=== PATIENT | male | born 1960 | race Caucasian/White ===

== ENCOUNTER 2020-02-28 19:37 | Emergency (ER) | payer OTHER ==
[~2020-02-28] VITALS: Ht 182.9 cm; Wt 80.7 kg
[~2020-02-28 19:37] MED LIST: ASPI-1093 PO; CLOP75TA PO; HUM SUBQ; HYDR-5191 PO; LANTUS SUBQ; LISI-420 PO; METO25TA PO; SIMV40TA1 PO
[2020-02-28 21:00] VITALS: BP 127/76
--- NOTE | 2020-02-28 21:03 | NUR ---
TO LOBBY A/W BED AMBULATORY
--- NOTE | 2020-02-28 22:00 | NUR ---
SEEN AND EXAMINED BY NATANAEL WITH ORDERS AND CARRIED OUT.
--- NOTE | 2020-02-28 23:30 | NUR ---
RESULT BACK AND NOTED BY ERMD AND FOR D/C
[2020-02-28 23:50] VITALS: BP 127/76
== END 2020-02-28 23:50 | disposition home or self-care (01) ==
LOC: MED 19:37
DX: M25.561 Pain in right knee (principal); E11.9 Type 2 diabetes mellitus without complications; I10 Essential (primary) hypertension; Z88.8 Allergy status to other drugs, medicaments and biological substances; Z79.4 Long term (current) use of insulin; Z79.899 Other long term (current) drug therapy; Z86.73 Personal history of transient ischemic attack (TIA), and cerebral infarction without residual deficits; Z98.890 Other specified postprocedural states
CPT/HCPCS: 73562; 99283

== ENCOUNTER 2020-10-12 02:25 | Emergency (ER) | payer OTHER ==
[~2020-10-12] VITALS: Ht 182.9 cm; Wt 83.0 kg
[~2020-10-12 02:25] MED LIST changes: -LISI-420 PO; +LISI-487 PO
[2020-10-12 02:30] VITALS: BP 150/71
[2020-10-12] MEDS ORDERED: ONDANSETRON 4 MG/2 ML VIAL IVP ONE (02:40)
[2020-10-12] MEDS ORDERED: NACL 0.9% 1,000 ML IV ONE (02:40)
[2020-10-12] MEDS ORDERED: MORPHINE SULFATE 4 MG/ML SYR IVP ONE (02:40)
--- NOTE | 2020-10-12 02:45 | NUR ---
SEE COMPLETE ASSESSMENT.
--- NOTE | 2020-10-12 02:56 | NUR ---
BIB WHEELCHAIR FROM ER LOBBY TO ER BED 13
[2020-10-12 03:01] LABS: BASOPHILS % (AUTO) 0.6 % (0.0-2.0); EOSINOPHILS # (AUTO) 0.3 K/uL (0-0.4); EOSINOPHILS % (AUTO) 3.6 % (0.0-4.0); HEMATOCRIT 39.2 % (36-52); HEMOGLOBIN 13.4 g/dL (12.0-18.0); LYMPHOCYTES # (AUTO) 1.9 K/uL (2.0-11.5); LYMPHOCYTES % (AUTO) 22.5 % (20.5-51.1); MEAN CORPUSCULAR HEMOGLOBIN 32 pg (27-31); MEAN CORPUSCULAR HGB CONC 34 g/dL (33-37); MEAN CORPUSCULAR VOLUME 92.4 fL (80-94); MONOCYTES # (AUTO) 0.6 K/uL (0.8-1.0); MONOCYTES % (AUTO) 6.6 % (1.7-9.3); NEUTROPHILS # (AUTO) 5.6 K/uL (1.8-7.7); NEUTROPHILS % (AUTO) 66.7 % (42.2-75.2); PLATELET COUNT (AUTO) 272 K/uL (140-450); RED BLOOD CELL COUNT(AUTO) 4.24 MIL/uL (4.20-6.10); RED CELL DISTRIBUTION WIDTH 13.4 % (11.6-13.7); WHITE BLOOD COUNT (AUTO) 8.4 K/uL (4.8-10.8)
[2020-10-12 03:15] LABS: ANION GAP 11.2 (8-16); CARBON DIOXIDE 28.8 mmol/L (21-32); TOTAL BILIRUBIN 0.2 mg/dL (0.0-1.0)
--- NOTE | 2020-10-12 03:39 | NUR ---
PT TAKEN TO CT VIA RTE[facility].
--- NOTE | 2020-10-12 05:45 | NUR ---
DELAY IN URINE COLLECTION, PT. STATES "I CAN'T GO RIGHT NOW."
--- NOTE | 2020-10-12 05:50 | NUR ---
PT. SITTING UPRIGHT RESTING WITH EYES CLOSED, VOICES NO COMPLAINTS AT THIS TIME
--- NOTE | 2020-10-12 06:10 | NUR ---
PER ERMD OK TO DISCHARGE PT. WITHOUT URINE COLLECTION.
[2020-10-12 06:15] VITALS: BP 150/71
--- NOTE | 2020-10-12 06:15 | NUR ---
Patient discharged with v/s stable. Written and verbal after care instructions given and explained. Patient verbalized understanding. Ambulatory with steady gait using cane. All questions addressed prior to discharge. Advised to follow up with PMD.
--- NOTE | 2020-10-13 19:22 | NUR ---
LATE ENTRY- 0.9% NS IVF DISCONTINUED AT 0412
== END 2020-10-12 06:15 | disposition home or self-care (01) ==
LOC: MED 02:25
DX: K59.00 Constipation, unspecified (principal); E11.9 Type 2 diabetes mellitus without complications; I10 Essential (primary) hypertension; Z79.4 Long term (current) use of insulin; Z79.899 Other long term (current) drug therapy; Z86.73 Personal history of transient ischemic attack (TIA), and cerebral infarction without residual deficits
CPT/HCPCS: 36415; 74177; 80053; 82150; 83690; 85025; 96361; 96374; 96375; 99285; J2270; J2405; J7030; Q9967

== ENCOUNTER 2020-11-04 17:37 | Emergency (ER) | payer OTHER, SELFPAY ==
[~2020-11-04] VITALS: Ht 177.8 cm; Wt 83.0 kg
[~2020-11-04 17:37] MED LIST changes: +ASPI-1822 PO; +ATRN INH; +BISA-218 RC; +CARV6.25 PO; +DOCU250S72 PO; +FAMO-90 PO; +FLEPED RC; +GABA300C PO; +HYDR2TAB6 PO; +LACT-103 PO; +LISI10TA30 PO; +LORA-476 PO; +MAGN400S60 PO; +MIRABULK PO; +MIRT15OD PO; +NITR0.3T SL; +OMEP20EC11 PO; +ONDA4TAB PO; +ROB PO; +SENN-73 PO; +TICA90TA PO
[2020-11-04 17:40] VITALS: BP 169/100
[2020-11-04] MEDS ORDERED: NACL 0.9% 2,000 ML IV ONE (18:50)
[2020-11-04] MEDS ORDERED: ONDANSETRON 4 MG/2 ML VIAL IVP ONE (18:50)
[2020-11-04 18:57] LABS: BASOPHILS % (AUTO) 0.4 % (0.0-2.0); EOSINOPHILS # (AUTO) 0.2 K/uL (0-0.4); EOSINOPHILS % (AUTO) 2.9 % (0.0-4.0); HEMATOCRIT 42.2 % (36-52); HEMOGLOBIN 14.3 g/dL (12.0-18.0); LYMPHOCYTES # (AUTO) 1.1 K/uL (2.0-11.5); LYMPHOCYTES % (AUTO) 14.5 % (20.5-51.1); MEAN CORPUSCULAR HEMOGLOBIN 32 pg (27-31); MEAN CORPUSCULAR HGB CONC 34 g/dL (33-37); MEAN CORPUSCULAR VOLUME 93.6 fL (80-94); MONOCYTES # (AUTO) 0.5 K/uL (0.8-1.0); NEUTROPHILS # (AUTO) 5.9 K/uL (1.8-7.7); NEUTROPHILS % (AUTO) 76.2 % (42.2-75.2); PLATELET COUNT (AUTO) 262 K/uL (140-450); RED CELL DISTRIBUTION WIDTH 13.8 % (11.6-13.7); WHITE BLOOD COUNT (AUTO) 7.8 K/uL (4.8-10.8)
--- NOTE | 2020-11-04 18:59 | NUR ---
XRAY BEDSIDE WITH PT
--- NOTE | 2020-11-04 19:00 | NUR ---
59 y/o M RYAN from home with c/c nausea, vomiting, abdominal pain x 2 days. Per EMS, patient has history of GI issues and has had intestinal procedure completed. Patient A&Ox2 name/place, GCS 14. Patient seen and discharged here 2 days ago and states symptoms worsened. Patient reports low abd pain 9/10, sharp/intermittent, radiating to left and right lower quadrants. Patient denies fever, chills, SOB, chest pain, cold-like symptoms; denies trauma/injury and medications prior to arrival. VSS; respirations even/unlabored. Bed locked in lowest position, side rails x 2, call light in reach. AccuChek 423. PMH: HTN, DM, 5 previous MIs, 2 stents, 2 CVAs A: Furosemide, iodine Meds: Lantus, humalog, ASA 81, Lisinopril, metoprolol, simvastatin, plavix, [place] Sx: Bowel obstruction sx Addendum: 11/04/20 at 1909 by [facility] Pt reports "25+ episodes" of vomiting today.
--- NOTE | 2020-11-04 19:06 | NUR ---
Blood sample and UA collected, walked to lab and handed to CPT. Sary
[2020-11-04 19:11] LABS: ALBUMIN 4.3 g/dL (3.4-5.0); ANION GAP 9.8 (8-16); ASPARTATE AMINOTRANSFERASE 16 U/L (15-37); CARBON DIOXIDE 30.5 mmol/L (21-32); CHLORIDE 101 mmol/L (98-107); GFR ARICAN-AMERICAN 99 mL/min (>90); GLUCOSE 389 mg/dL (74-106); POTASSIUM 4.3 mmol/L (3.5-5.1); SODIUM SERUM 137 mmol/L (136-145); TOTAL BILIRUBIN 0.2 mg/dL (0.0-1.0); UREA NITROGEN, BLOOD 11 mg/dL (7-18)
--- NOTE | 2020-11-04 19:17 | NUR ---
Patient to CT by perla.
--- NOTE | 2020-11-04 19:25 | NUR ---
Report and transfer of care endorsed to MAX Roy.
[2020-11-04] MEDS ORDERED: HALOPERIDOL IM 5 MG/ML VIAL IVP ONE (19:35)
--- NOTE | 2020-11-04 20:18 | NUR ---
PT. ON RIGHT SIDE LAYING COMFORTABLY, VOICES NO COMPLAINTS AT THIS TIME. BREATHIG UNLABORED, HR EVEN AND REGULAR.
[2020-11-04 20:25] LABS: APPEARANCE,URINE CLEAR (CLEAR); BILIRUBIN,URINE NEGATIVE (NEGATIVE); BLOOD, URINE NEGATIVE (NEGATIVE); COLOR,URINE YELLOW (YELLOW); LEUKOCYTE ESTERASE ,URINE NEGATIVE (NEGATIVE); NITRITE, URINE NEGATIVE (NEGATIVE); PH,URINE 7.5 (5.0-9.0); UGLUCOSE 3+ (NEGATIVE)
[2020-11-04] MEDS ORDERED: ONDA-24 PO (20:37)
[2020-11-04 20:41] LABS: BARBITURATE, URINE NEGATIVE ng/ml (NEG <=200); BENZODIAZEPINE, URINE POSITIVE ng/mL (NEG <=200); CANNABINOID, URINE POSITIVE ng/mL (NEG <=50); COCAINE, URINE NEGATIVE ng/mL (NEG <=300); OPIATE, URINE POSITIVE ng/mL (NEG <=2000); PHENCYCLIDINE SCREEN,URINE NEGATIVE ng/mL (NEG <=25)
[2020-11-04 20:48] VITALS: BP 169/100
--- NOTE | 2020-11-04 20:48 | NUR ---
Patient discharged with v/s stable. Written and verbal after care instructions given and explained. Patient alert, oriented and verbalized understanding of instructions. Ambulatory with steady gait. All questions addressed prior to discharge. ID band removed. Patient advised to follow up with PMD. Rx of ZOFRAN ODT given. Patient educated on indication of medication including possible reaction and side effects. Opportunity to ask questions provided and answered.
--- NOTE | 2020-11-05 23:16 | NUR ---
LATE ENTRY- 0.9% NS IVF DISCONTINUED AT 2047
== END 2020-11-04 20:48 | disposition home or self-care (01) ==
LOC: MED 17:37
DX: R10.9 Unspecified abdominal pain (principal); R11.2 Nausea with vomiting, unspecified; E86.0 Dehydration; E11.9 Type 2 diabetes mellitus without complications; I10 Essential (primary) hypertension; Z95.5 Presence of coronary angioplasty implant and graft; Z98.890 Other specified postprocedural states; Z86.73 Personal history of transient ischemic attack (TIA), and cerebral infarction without residual deficits; Z79.899 Other long term (current) drug therapy; Z79.82 Long term (current) use of aspirin; Z79.4 Long term (current) use of insulin; Z79.01 Long term (current) use of anticoagulants; Z88.8 Allergy status to other drugs, medicaments and biological substances
CPT/HCPCS: 36415; 71045; 74176; 80053; 80305; 81003; 82140; 85025; 96361; 96374; 96375; 99285; G0482; J1630; J2405; J7030

== ENCOUNTER 2020-11-05 10:18 | Emergency (ER) | payer OTHER ==
[~2020-11-05] VITALS: Ht 182.9 cm; Wt 81.6 kg
[~2020-11-05 10:18] MED LIST changes: +ONDA-24 PO
[2020-11-05 10:25] VITALS: BP 141/67
--- NOTE | 2020-11-05 11:55 | NUR ---
11:55-PATIENT LEFT WITHOUT BEING SEEN BY DR. WOMACK. NO FURTHER CARE PROVIDED FOR PATIENT.
== END 2020-11-05 11:55 | disposition left against medical advice (07) ==
LOC: MED 10:18
DX: R11.2 Nausea with vomiting, unspecified (principal); Z53.21 Procedure and treatment not carried out due to patient leaving prior to being seen by health care provider

== ENCOUNTER 2020-12-06 19:32 | Emergency (ER) | payer OTHER ==
[~2020-12-06] VITALS: Ht 182.9 cm; Wt 102.1 kg
[2020-12-06 19:39] VITALS: BP 122/79
--- NOTE | 2020-12-06 19:39 | NUR ---
to bed ambulatory
--- NOTE | 2020-12-06 19:40 | NUR ---
PT. IS A 59 Y/O MALE THAT CAME TO ED WITH C/O OF ABDOMINAL DISTENTION. PT. STATES THAT HE HAS NOT HAD A BOWEL MOVEMENT SINCE LAST WEDNESDAY. HE ALSO STATES "HE FEELS HE HAS ABDOMINAL DISTENTION AND ABOMINAL PAIN." PT. RATES PAIN 9/10 ON THE PAIN SCALE AT THIS TIME. WHEN ASKED TO DESCRIBE PAIN, PT. STATES "IT IS MOSTLY ON MY LEFT SIDE." ADMITS TO N/V BUT DENIES DIARRHEA; SKIN IS PINK/WARM/DRY; AAOX4 WITH EVEN AND STEADY GAIT; HR EVEN AND REGULAR; PT DENIES ANY FEVER, CP, SOB, OR COUGH AT THIS TIME; VSS; PATIENT POSITIONED FOR COMFORT; HOB ELEVATED; BEDRAILS UP X2; BED DOWN. ER MD MADE AWARE OF PT STATUS. PMH: SEE COMPLETE ASSESSMENT ALLERGIES: FUROSEMIDE AND IODINE
[2020-12-06] MEDS ORDERED: diphenhydrAMINE 50 MG/ML VIAL IVP ONE (20:15)
[2020-12-06] MEDS ORDERED: KETOROLAC 30 MG/ML VIAL IVP ONE (20:15)
[2020-12-06] MEDS ORDERED: NACL 0.9% 1,000 ML IV SCH (20:15)
[2020-12-06] MEDS ORDERED: PROCHLORPERAZINE 10 MG/2 ML VIAL IVP ONE (20:15)
--- NOTE | 2020-12-06 20:38 | NUR ---
PT. TAKEN TO CT. VIA W/C
--- NOTE | 2020-12-06 20:45 | NUR ---
PT. BACK FROM CT.
--- NOTE | 2020-12-06 20:50 | NUR ---
LABS DRAWN AND HANDED TO SARINA FROM LAB
[2020-12-06 21:05] LABS: BASOPHILS # (AUTO) 0.1 K/uL (0.00-0.22); EOSINOPHILS # (AUTO) 0.4 K/uL (0-0.4); EOSINOPHILS % (AUTO) 6.3 % (0.0-4.0); HEMATOCRIT 40.7 % (36-52); HEMOGLOBIN 13.8 g/dL (12.0-18.0); LYMPHOCYTES % (AUTO) 31.8 % (20.5-51.1); MEAN CORPUSCULAR HEMOGLOBIN 32 pg (27-31); MEAN CORPUSCULAR HGB CONC 34 g/dL (33-37); MEAN CORPUSCULAR VOLUME 94.2 fL (80-94); MONOCYTES # (AUTO) 0.5 K/uL (0.8-1.0); MONOCYTES % (AUTO) 8.1 % (1.7-9.3); NEUTROPHILS # (AUTO) 3.3 K/uL (1.8-7.7); NEUTROPHILS % (AUTO) 52.8 % (42.2-75.2); PLATELET COUNT (AUTO) 199 K/uL (140-450); RED BLOOD CELL COUNT(AUTO) 4.32 MIL/uL (4.20-6.10); RED CELL DISTRIBUTION WIDTH 14.1 % (11.6-13.7); WHITE BLOOD COUNT (AUTO) 6.2 K/uL (4.8-10.8)
[2020-12-06 21:25] LABS: ALBUMIN 3.7 g/dL (3.4-5.0); ANION GAP 14.1 (8-16); CARBON DIOXIDE 27.1 mmol/L (21-32); CREATININE 1.1 mg/dL (0.6-1.3); POTASSIUM 4.2 mmol/L (3.5-5.1); TOTAL BILIRUBIN 0.3 mg/dL (0.0-1.0)
[2020-12-06 21:51] VITALS: BP 122/79
--- NOTE | 2020-12-06 21:51 | NUR ---
Patient does not wish to proceed with medical care recommended by DR. SINGH. Patient given information related to possible complications, up to and including , which could occur as a result of leaving hospital at this time. Patient verbalizes understanding of risks involved leaving against medical advice. Patient has signed AMA form.
--- NOTE | 2020-12-09 11:54 | NUR ---
LATE ENTRY--- IV NORMAL SALINE 0.9% FLUIDS DISCONTINUED AT 2151.
== END 2020-12-06 21:51 | disposition left against medical advice (07) ==
LOC: MED 19:32
DX: R10.9 Unspecified abdominal pain (principal); R14.0 Abdominal distension (gaseous); R11.0 Nausea; E11.9 Type 2 diabetes mellitus without complications; I10 Essential (primary) hypertension; Z86.73 Personal history of transient ischemic attack (TIA), and cerebral infarction without residual deficits; Z88.8 Allergy status to other drugs, medicaments and biological substances; Z79.899 Other long term (current) drug therapy; Z98.890 Other specified postprocedural states; Z79.4 Long term (current) use of insulin; Z79.82 Long term (current) use of aspirin
CPT/HCPCS: 36415; 74176; 80053; 82150; 83690; 85025; 96361; 96374; 96375; 99284; J0780; J1200; J7030; J1885

== ENCOUNTER 2021-09-27 17:10 | Emergency (ER) | payer OTHER ==
[~2021-09-27] VITALS: Ht 177.8 cm; Wt 79.4 kg
[~2021-09-27 17:10] MED LIST changes: +ONDA-188 PO; -ONDA-24 PO
[2021-09-27 17:55] VITALS: BP 112/73
[2021-09-27] MEDS ORDERED: KETOROLAC 30 MG/ML VIAL IVP ONE (18:45)
[2021-09-27] MEDS ORDERED: ACET-8386 PO (18:50)
[2021-09-27] MEDS ORDERED: IBUP-2213 PO (18:50)
--- NOTE | 2021-09-27 18:55 | NUR ---
ULNAR GUTTER SPLINT PLACED ON PT'S RIGHT HAND. CMS INTACT BEFORE AND AFTER PLACEMENT. CHANTELL BLACKBURN VERIFIED AND APPROVED OF SPLINT PLACEMENT.
[2021-09-27 19:07] VITALS: BP 118/80
--- NOTE | 2021-09-27 19:08 | NUR ---
Patient discharged with v/s stable. Written and verbal after care instructions given and explained. Patient alert, oriented and verbalized understanding of instructions. Ambulatory with steady gait. All questions addressed prior to discharge. ID band removed. Patient advised to follow up with PMD. Rx of NORCO, MOTRIN given. Patient educated on indication of medication including possible reaction and side effects. Opportunity to ask questions provided and answered.
== END 2021-09-27 19:08 | disposition home or self-care (01) ==
LOC: MED 17:10
DX: S62.336A Displaced fracture of neck of fifth metacarpal bone, right hand, initial encounter for closed fracture (principal); E11.9 Type 2 diabetes mellitus without complications; I10 Essential (primary) hypertension; Z86.73 Personal history of transient ischemic attack (TIA), and cerebral infarction without residual deficits; Z95.5 Presence of coronary angioplasty implant and graft; Z98.890 Other specified postprocedural states; Z79.891 Long term (current) use of opiate analgesic; Z79.899 Other long term (current) drug therapy; Z79.1 Long term (current) use of non-steroidal anti-inflammatories (NSAID); Z79.82 Long term (current) use of aspirin; Z79.01 Long term (current) use of anticoagulants; Z79.4 Long term (current) use of insulin; Z88.8 Allergy status to other drugs, medicaments and biological substances; W22.8XXA Striking against or struck by other objects, initial encounter; Y92.89 Other specified places as the place of occurrence of the external cause; Y93.89 Activity, other specified; Y99.8 Other external cause status
CPT/HCPCS: 29125; 73130; 96372; 99283; J1885

== ENCOUNTER 2021-09-29 13:58 | Emergency (ER) | payer OTHER ==
[~2021-09-29] VITALS: Ht 185.4 cm; Wt 87.1 kg
[~2021-09-29 13:58] MED LIST changes: +ACET-8386 PO; +IBUP-2213 PO
[2021-09-29 14:11] VITALS: BP 101/61
--- NOTE | 2021-09-29 15:33 | NUR ---
PATIENT LEFT WITHOUT BEING SEEN BY DR. FRANZ. NO FURTHER CARE PROVIDED FOR PATIENT.
== END 2021-09-29 15:33 | disposition left against medical advice (07) ==
LOC: MED 13:58
DX: M79.601 Pain in right arm (principal); Z53.21 Procedure and treatment not carried out due to patient leaving prior to being seen by health care provider

== ENCOUNTER 2021-11-05 20:04 | Emergency (ER) | payer OTHER ==
[~2021-11-05] VITALS: Ht 182.9 cm; Wt 83.0 kg
[2021-11-05 20:39] VITALS: BP 131/66
[2021-11-05] MEDS ORDERED: PRED20TA5 PO (22:44)
[2021-11-05] MEDS ORDERED: IBUP-2213 PO (22:44)
[2021-11-05 23:07] VITALS: BP 124/86
== END 2021-11-05 23:08 | disposition home or self-care (01) ==
LOC: MED 20:04
DX: R06.02 Shortness of breath (principal); R05.9 Cough, unspecified; M54.6 Pain in thoracic spine; E11.9 Type 2 diabetes mellitus without complications; I10 Essential (primary) hypertension; Z86.73 Personal history of transient ischemic attack (TIA), and cerebral infarction without residual deficits; Z95.5 Presence of coronary angioplasty implant and graft; Z98.890 Other specified postprocedural states; Z79.899 Other long term (current) drug therapy; Z79.1 Long term (current) use of non-steroidal anti-inflammatories (NSAID); Z79.891 Long term (current) use of opiate analgesic; Z79.82 Long term (current) use of aspirin; Z79.4 Long term (current) use of insulin; Z88.8 Allergy status to other drugs, medicaments and biological substances
CPT/HCPCS: 71045; 99283

== ENCOUNTER 2021-11-20 17:45 | Emergency (ER) | payer OTHER ==
[~2021-11-20] VITALS: Ht 182.9 cm; Wt 87.5 kg
[~2021-11-20 17:45] MED LIST changes: +PRED20TA5 PO
[2021-11-20 17:57] VITALS: BP 147/93
[2021-11-20 19:07] LABS: BASOPHILS % (AUTO) 0.3 % (0.0-2.0); EOSINOPHILS # (AUTO) 0.2 K/uL (0-0.4); EOSINOPHILS % (AUTO) 1.8 % (0.0-4.0); HEMATOCRIT 41.4 % (36-52); HEMOGLOBIN 14.1 g/dL (12.0-18.0); MEAN CORPUSCULAR HEMOGLOBIN 32 pg (27-31); MEAN CORPUSCULAR HGB CONC 34 g/dL (33-37); MEAN CORPUSCULAR VOLUME 92.6 fL (80-94); MONOCYTES # (AUTO) 0.7 K/uL (0.8-1.0); MONOCYTES % (AUTO) 7.8 % (1.7-9.3); NEUTROPHILS # (AUTO) 7.3 K/uL (1.8-7.7); NEUTROPHILS % (AUTO) 79.1 % (42.2-75.2); PLATELET COUNT (AUTO) 240 K/uL (140-450); RED BLOOD CELL COUNT(AUTO) 4.47 MIL/uL (4.20-6.10); RED CELL DISTRIBUTION WIDTH 13.5 % (11.6-13.7); WHITE BLOOD COUNT (AUTO) 9.2 K/uL (4.8-10.8)
[2021-11-20 19:32] LABS: ALBUMIN 3.6 g/dL (3.4-5.0); ANION GAP 13.6 (8-16); CARBON DIOXIDE 26.8 mmol/L (21-32); CREATININE 1.3 mg/dL (0.6-1.3); POTASSIUM 4.4 mmol/L (3.5-5.1); TOTAL BILIRUBIN 0.3 mg/dL (0.0-1.0)
--- NOTE | 2021-11-20 20:10 | NUR ---
PT TOLD ADMITTING HE IS LEAVING. LWBS
== END 2021-11-20 20:10 | disposition left against medical advice (07) ==
LOC: MED 17:45
DX: R10.9 Unspecified abdominal pain (principal); R14.0 Abdominal distension (gaseous); R11.2 Nausea with vomiting, unspecified; R19.7 Diarrhea, unspecified; Z53.21 Procedure and treatment not carried out due to patient leaving prior to being seen by health care provider
CPT/HCPCS: 36415; 73110; 80053; 83690; 85025; 99281

== ENCOUNTER 2021-11-23 10:33 | Emergency (ER) | payer OTHER ==
[~2021-11-23] VITALS: Ht 182.9 cm; Wt 87.5 kg
[2021-11-23 10:38] VITALS: BP 132/94
--- NOTE | 2021-11-23 10:41 | NUR ---
AMBULATED TO BED 1
--- NOTE | 2021-11-23 10:50 | NUR ---
60 Y/O MALE BIB SELF C/O ABDOMINAL PAIN, NAUSEA AND VOMITING X1 WEEK. STATES GI DOCTOR ADVISED HIM TO COME TO ED FOR CT SCAN. DENIES ANY BLOOD IN STOOL OR VOMITUS. PATIENT HERE ON 11/20 FOR SAME SYMPTOMS BUT STATED HE LWBS. STATED THAT HE TOOK ZOFRAN 4MG FOR NAUSEA WITH MODERATE EFFECT. 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
[2021-11-23] MEDS ORDERED: ONDANSETRON 4 MG/2 ML VIAL IVP ONE (11:20)
[2021-11-23] MEDS ORDERED: MORPHINE SULFATE 4 MG/ML SYR IVP ONE (11:20)
[2021-11-23] MEDS ORDERED: NACL 0.9% 1,000 ML IV ONE (11:20)
--- NOTE | 2021-11-23 11:45 | NUR ---
PT TAKEN TO CT VIA SIGRID
[2021-11-23 12:01] LABS: BASOPHILS % (AUTO) 0.5 % (0.0-2.0); EOSINOPHILS # (AUTO) 0.2 K/uL (0-0.4); HEMATOCRIT 39.3 % (36-52); HEMOGLOBIN 13.5 g/dL (12.0-18.0); LYMPHOCYTES # (AUTO) 1.2 K/uL (2.0-11.5); LYMPHOCYTES % (AUTO) 22.3 % (20.5-51.1); MEAN CORPUSCULAR HEMOGLOBIN 32 pg (27-31); MEAN CORPUSCULAR HGB CONC 34 g/dL (33-37); MEAN CORPUSCULAR VOLUME 92.6 fL (80-94); MONOCYTES # (AUTO) 0.6 K/uL (0.8-1.0); MONOCYTES % (AUTO) 11.7 % (1.7-9.3); NEUTROPHILS # (AUTO) 3.3 K/uL (1.8-7.7); NEUTROPHILS % (AUTO) 62.5 % (42.2-75.2); PLATELET COUNT (AUTO) 213 K/uL (140-450); RED BLOOD CELL COUNT(AUTO) 4.25 MIL/uL (4.20-6.10); RED CELL DISTRIBUTION WIDTH 13.5 % (11.6-13.7); WHITE BLOOD COUNT (AUTO) 5.3 K/uL (4.8-10.8)
[2021-11-23] MEDS ORDERED: BEN10 PO (12:19)
[2021-11-23] MEDS ORDERED: MAGN400S60 PO (12:19)
[2021-11-23] MEDS ORDERED: ACET-10509 PO (12:19)
[2021-11-23] MEDS ORDERED: SIME125T38 PO (12:19)
[2021-11-23 12:30] LABS: ALBUMIN 3.3 g/dL (3.4-5.0); ANION GAP 14.7 (8-16); CARBON DIOXIDE 22.6 mmol/L (21-32); CREATININE 1.3 mg/dL (0.6-1.3); POTASSIUM 4.3 mmol/L (3.5-5.1); TOTAL BILIRUBIN 0.3 mg/dL (0.0-1.0)
[2021-11-23 13:05] VITALS: BP 119/88
--- NOTE | 2021-11-23 13:05 | NUR ---
Patient discharged with v/s stable. Written and verbal after care instructions given and explained. Patient alert, oriented and verbalized understanding of instructions. Ambulatory with steady gait. All questions addressed prior to discharge. ID band removed. Patient advised to follow up with PMD. Rx of TYLENOL EXTRA STRENGTH, BENTYL, MILK OF MAGNESIA, [place] given. Patient educated on indication of medication including possible reaction and side effects. Opportunity to ask questions provided and answered.
== END 2021-11-23 13:05 | disposition home or self-care (01) ==
LOC: MED 10:33
DX: R10.84 Generalized abdominal pain (principal); I10 Essential (primary) hypertension; I25.10 Atherosclerotic heart disease of native coronary artery without angina pectoris; E11.9 Type 2 diabetes mellitus without complications; Z91.040 Latex allergy status; Z88.8 Allergy status to other drugs, medicaments and biological substances; Z86.73 Personal history of transient ischemic attack (TIA), and cerebral infarction without residual deficits; Z98.890 Other specified postprocedural states
CPT/HCPCS: 36415; 74176; 80053; 85025; 96361; 96374; 96375; 99284; J2270; J2405; J7030

== ENCOUNTER 2022-02-11 12:06 | Emergency (ER) | payer OTHER ==
[~2022-02-11] VITALS: Ht 182.9 cm; Wt 88.0 kg
[~2022-02-11 12:06] MED LIST changes: +ACET-10509 PO; +BEN10 PO; +SIME125T38 PO
[2022-02-11 12:12] VITALS: BP 129/88
--- NOTE | 2022-02-11 12:20 | NUR ---
PT W/C ASSISTED TO BED 3.
[2022-02-11 13:40] LABS: BASOPHILS % (AUTO) 0.7 % (0.0-2.0); EOSINOPHILS # (AUTO) 0.3 K/uL (0-0.4); EOSINOPHILS % (AUTO) 4.7 % (0.0-4.0); HEMATOCRIT 40.4 % (36-52); HEMOGLOBIN 13.8 g/dL (12.0-18.0); LYMPHOCYTES % (AUTO) 14.8 % (20.5-51.1); MEAN CORPUSCULAR HEMOGLOBIN 31 pg (27-31); MEAN CORPUSCULAR HGB CONC 34 g/dL (33-37); MEAN CORPUSCULAR VOLUME 92.1 fL (80-94); MONOCYTES # (AUTO) 0.6 K/uL (0.8-1.0); MONOCYTES % (AUTO) 8.8 % (1.7-9.3); NEUTROPHILS # (AUTO) 4.9 K/uL (1.8-7.7); PLATELET COUNT (AUTO) 243 K/uL (140-450); RED BLOOD CELL COUNT(AUTO) 4.38 MIL/uL (4.20-6.10); RED CELL DISTRIBUTION WIDTH 13.5 % (11.6-13.7); WHITE BLOOD COUNT (AUTO) 6.9 K/uL (4.8-10.8)
[2022-02-11 14:04] LABS: ANION GAP 9.6 (8-16); CARBON DIOXIDE 31.7 mmol/L (21-32); CREATININE 1.2 mg/dL (0.6-1.3); POTASSIUM 4.3 mmol/L (3.5-5.1)
[2022-02-11 14:05] LABS: ALBUMIN 3.6 g/dL (3.4-5.0); TOTAL BILIRUBIN 0.6 mg/dL (0.0-1.0)
[2022-02-11] MEDS: ASPIRIN 325 MG TAB PO ONE (14:17)
--- NOTE | 2022-02-11 14:20 | NUR ---
61M presents to ED with c/o chest pain and SOB x8 days. Pt reports a constant, pressure like, 4/10 chest pain that worsened today. Pt denies taking meds, states he ran out of nitroglycerin. Pt denies fevers, chills, N/V/D, headaches, or dizziness. Upon assessment, pt's O2 98% on RA. Pt changed into gown and placed on bedside monitor.
[2022-02-11 14:23] LABS: PROTHROMBIN TIME 10.6 secs (10.8-13.4)
--- NOTE | 2022-02-11 15:46 | NUR ---
Swab collected and walked to lab.
[2022-02-11 16:35] VITALS: BP 100/60
--- NOTE | 2022-02-11 17:36 | NUR ---
Patient does not wish to proceed with medical care recommended by Dr. Falcon. Patient given information related to possible complications, up to and including , which could occur as a result of leaving hospital at this time. Patient verbalizes understanding of risks involved leaving against medical advice. Patient has signed AMA form.
== END 2022-02-11 17:36 | disposition left against medical advice (07) ==
LOC: MED 12:06
DX: R07.89 Other chest pain (principal); Z20.822 Contact with and (suspected) exposure to COVID-19
CPT/HCPCS: 36415; 71045; 80053; 83880; 84484; 85025; 85610; 85730; 87426; 93005; 99285; Q0092

== ENCOUNTER 2022-04-02 13:36 | Emergency (ER) | payer OTHER ==
[~2022-04-02 13:36] MED LIST changes: -ACET-8386 PO; +ACET-8905 PO
--- NOTE | 2022-04-02 14:04 | NUR ---
PATIENT LEFT WITHOUT BEING SEEN BY DR. marroquin. NO FURTHER CARE PROVIDED FOR PATIENT.
== END 2022-04-02 14:04 | disposition left against medical advice (07) ==
LOC: MED 13:36
DX: J00 Acute nasopharyngitis [common cold] (principal); Z53.21 Procedure and treatment not carried out due to patient leaving prior to being seen by health care provider

== ENCOUNTER 2022-04-23 10:45 | Emergency (ER) | payer OTHER ==
[~2022-04-23] VITALS: Ht 182.9 cm; Wt 89.1 kg
[2022-04-23 10:47] VITALS: BP 129/88
--- NOTE | 2022-04-23 10:55 | NUR ---
61/M WALKED IN C/O MIDSTERNAL CP ONSET 2 DAYS ACCOMPANIED BY HEADACHE. DENIES RADIATION. DENIES NVD, DENIES DIZZINESS. REPORTS HX STROKE AND TX, 11X STENTS. ON GOWN, ON GIZZARD PULLER. AAO4, AMBULATORY, NO ACUTE DISTRESS NOTED. PMH: STROKE, 6 HEART ATTACKS, 11 STENTS
--- NOTE | 2022-04-23 11:12 | NUR ---
IV ESTABLISHED TO RIGHT AC WITH 20G. BLOOD DRAWN.URINE COLLECTED. EKG DONE
[2022-04-23] MEDS ORDERED: PROCHLORPERAZINE 10 MG/2 ML VIAL IM ONE (11:45)
[2022-04-23] MEDS ORDERED: MORPHINE SULFATE 2 MG/ML SYR IM ONE (11:45)
[2022-04-23 11:53] LABS: BASOPHILS % (AUTO) 0.6 % (0.0-2.0); EOSINOPHILS # (AUTO) 0.4 K/uL (0-0.4); EOSINOPHILS % (AUTO) 5.2 % (0.0-4.0); HEMATOCRIT 41.7 % (36-52); HEMOGLOBIN 14.3 g/dL (12.0-18.0); LYMPHOCYTES # (AUTO) 1.7 K/uL (2.0-11.5); LYMPHOCYTES % (AUTO) 24.2 % (20.5-51.1); MEAN CORPUSCULAR HEMOGLOBIN 31 pg (27-31); MEAN CORPUSCULAR HGB CONC 34 g/dL (33-37); MEAN CORPUSCULAR VOLUME 89.7 fL (80-94); MONOCYTES # (AUTO) 0.5 K/uL (0.8-1.0); NEUTROPHILS # (AUTO) 4.3 K/uL (1.8-7.7); PLATELET COUNT (AUTO) 273 K/uL (140-450); RED BLOOD CELL COUNT(AUTO) 4.65 MIL/uL (4.20-6.10); RED CELL DISTRIBUTION WIDTH 13.8 % (11.6-13.7); WHITE BLOOD COUNT (AUTO) 6.9 K/uL (4.8-10.8)
[2022-04-23 12:15] LABS: ALBUMIN 4.4 g/dL (3.4-5.0); ANION GAP 13.3 (8-16); CARBON DIOXIDE 29.9 mmol/L (21-32); CREATININE 1.1 mg/dL (0.6-1.3); POTASSIUM 4.2 mmol/L (3.5-5.1); TOTAL BILIRUBIN 0.5 mg/dL (0.0-1.0)
[2022-04-23] MEDS ORDERED: TRAM-748 PO (13:16)
[2022-04-23 13:20] VITALS: BP 135/74
== END 2022-04-23 13:20 | disposition home or self-care (01) ==
LOC: MED 10:45
DX: G43.909 Migraine, unspecified, not intractable, without status migrainosus (principal); R07.9 Chest pain, unspecified; I25.2 Old myocardial infarction; E11.9 Type 2 diabetes mellitus without complications; I10 Essential (primary) hypertension; Z86.73 Personal history of transient ischemic attack (TIA), and cerebral infarction without residual deficits; Z98.890 Other specified postprocedural states; Z79.899 Other long term (current) drug therapy; Z79.1 Long term (current) use of non-steroidal anti-inflammatories (NSAID); Z79.891 Long term (current) use of opiate analgesic; Z79.82 Long term (current) use of aspirin; Z79.01 Long term (current) use of anticoagulants; Z79.4 Long term (current) use of insulin; Z88.8 Allergy status to other drugs, medicaments and biological substances
CPT/HCPCS: 36415; 71045; 80053; 83880; 84484; 85025; 93005; 96372; 99285; J0780; J2270

== ENCOUNTER 2022-05-13 00:22 | Emergency (ER) | payer OTHER ==
[~2022-05-13] VITALS: Ht 182.9 cm; Wt 87.1 kg
[~2022-05-13 00:22] MED LIST changes: +TRAM-748 PO
[2022-05-13 00:31] VITALS: BP 132/86
[2022-05-13] MEDS ORDERED: MECLIZINE 25 MG TAB PO ONE (01:20)
[2022-05-13] MEDS ORDERED: ONDANSETRON 4 MG ODT PO ONE (01:20)
[2022-05-13] MEDS ORDERED: ONDANSETRON 4 MG ODT ONE (01:22)
[2022-05-13] MEDS ORDERED: MECLIZINE 25 MG TAB ONE (01:22)
[2022-05-13 01:35] LABS: BASOPHILS % (AUTO) 0.6 % (0.0-2.0); EOSINOPHILS # (AUTO) 0.3 K/uL (0-0.4); EOSINOPHILS % (AUTO) 3.7 % (0.0-4.0); HEMATOCRIT 36.9 % (36-52); HEMOGLOBIN 12.5 g/dL (12.0-18.0); LYMPHOCYTES # (AUTO) 1.4 K/uL (2.0-11.5); LYMPHOCYTES % (AUTO) 19.1 % (20.5-51.1); MEAN CORPUSCULAR HEMOGLOBIN 31 pg (27-31); MEAN CORPUSCULAR HGB CONC 34 g/dL (33-37); MEAN CORPUSCULAR VOLUME 89.7 fL (80-94); MONOCYTES # (AUTO) 0.5 K/uL (0.8-1.0); MONOCYTES % (AUTO) 7.3 % (1.7-9.3); NEUTROPHILS # (AUTO) 4.9 K/uL (1.8-7.7); NEUTROPHILS % (AUTO) 69.3 % (42.2-75.2); PLATELET COUNT (AUTO) 241 K/uL (140-450); RED BLOOD CELL COUNT(AUTO) 4.11 MIL/uL (4.20-6.10); RED CELL DISTRIBUTION WIDTH 13.8 % (11.6-13.7); WHITE BLOOD COUNT (AUTO) 7.1 K/uL (4.8-10.8)
[2022-05-13 01:45] LABS: ALBUMIN 3.9 g/dL (3.4-5.0); ANION GAP 8.7 (8-16); CARBON DIOXIDE 32.2 mmol/L (21-32); CREATININE 1.2 mg/dL (0.6-1.3); POTASSIUM 3.9 mmol/L (3.5-5.1); TOTAL BILIRUBIN 0.2 mg/dL (0.0-1.0)
[2022-05-13 02:09] LABS: BARBITURATE, URINE NEGATIVE ng/ml (NEG <=200); BENZODIAZEPINE, URINE NEGATIVE ng/mL (NEG <=200); CANNABINOID, URINE POSITIVE ng/mL (NEG <=50); COCAINE, URINE NEGATIVE ng/mL (NEG <=300); OPIATE, URINE NEGATIVE ng/mL (NEG <=2000); PHENCYCLIDINE SCREEN,URINE NEGATIVE ng/mL (NEG <=25)
[2022-05-13] MEDS ORDERED: ONDA-188 SL (03:04)
[2022-05-13] MEDS ORDERED: MECL-303 PO (03:04)
[2022-05-13 03:10] VITALS: BP 119/74
== END 2022-05-13 03:10 | disposition home or self-care (01) ==
LOC: MED 00:22
DX: F12.229 Cannabis dependence with intoxication, unspecified (principal); E11.65 Type 2 diabetes mellitus with hyperglycemia; I10 Essential (primary) hypertension; F15.90 Other stimulant use, unspecified, uncomplicated; I25.2 Old myocardial infarction; Z86.73 Personal history of transient ischemic attack (TIA), and cerebral infarction without residual deficits; Z98.890 Other specified postprocedural states; Z79.899 Other long term (current) drug therapy; Z79.82 Long term (current) use of aspirin; Z79.891 Long term (current) use of opiate analgesic; Z79.4 Long term (current) use of insulin; Z79.1 Long term (current) use of non-steroidal anti-inflammatories (NSAID); Z88.8 Allergy status to other drugs, medicaments and biological substances; Z95.5 Presence of coronary angioplasty implant and graft
CPT/HCPCS: 36415; 71045; 80053; 80305; 85025; 93005; 99285; J8597; Q0092; Q0162

== ENCOUNTER 2022-06-03 19:36 | Emergency (ER) | payer OTHER ==
[~2022-06-03 19:36] MED LIST changes: +MECL-303 PO; +ONDA-188 SL; +SIMV-373 PO; -SIMV40TA1 PO
--- NOTE | 2022-06-03 22:00 | NUR ---
PATIENT LEFT WITHOUT BEING SEEN BY DR. ZAVALA. NO FURTHER CARE PROVIDED FOR PATIENT.
--- NOTE | 2022-06-03 22:00 | NUR ---
made call out into lobby no answer x1
--- NOTE | 2022-06-03 22:35 | NUR ---
made call out to lobby no answer, second attempt
--- NOTE | 2022-06-03 23:59 | NUR ---
made call to lobby and ER and outside, no answer LWBS by physician
== END 2022-06-03 22:00 | disposition left against medical advice (07) ==
LOC: MED 19:36
DX: R10.9 Unspecified abdominal pain (principal); Z53.21 Procedure and treatment not carried out due to patient leaving prior to being seen by health care provider

== ENCOUNTER 2022-11-27 22:18 | Emergency (ER) | payer OTHER | END 2022-11-27 23:30 | disposition left against medical advice (07) | LOC: MED 22:18 | DX: Z53.21 Procedure and treatment not carried out due to patient leaving prior to being seen by health care provider (principal) ==

== ENCOUNTER 2023-10-03 15:27 | Emergency (ER) | payer OTHER ==
[~2023-10-03] VITALS: Ht 180.3 cm; Wt 83.9 kg
[~2023-10-03 15:27] MED LIST changes: -BISA-218 RC; +BISA-279 RC; +HYDR-5071 PO; -HYDR-5191 PO; -LACT-103 PO; +LACT-191 PO; -LISI-487 PO; +LISI-953 PO
[2023-10-03 15:48] VITALS: BP 89/64; PULSE 120; RESP 18; TEMP 98.1; O2SAT 97
[2023-10-03] MEDS: ACETAMINOPHEN EXTRA STRENGTH 500 MG TAB PO ONE (16:19)
[2023-10-03] MEDS ORDERED: ACET-10509 PO (16:57)
== END 2023-10-03 17:46 | disposition home or self-care (01) ==
LOC: MED 15:27
DX: S93.402A Sprain of unspecified ligament of left ankle, initial encounter (principal); I25.2 Old myocardial infarction; E11.9 Type 2 diabetes mellitus without complications; I10 Essential (primary) hypertension; Z79.899 Other long term (current) drug therapy; Z79.4 Long term (current) use of insulin; Z79.01 Long term (current) use of anticoagulants; Z88.8 Allergy status to other drugs, medicaments and biological substances; Z79.82 Long term (current) use of aspirin; X50.1XXA Overexertion from prolonged static or awkward postures, initial encounter; Y93.89 Activity, other specified; Y92.89 Other specified places as the place of occurrence of the external cause; Y99.8 Other external cause status
CPT/HCPCS: 73610; 93005; 99283

== ENCOUNTER 2023-10-15 01:40 | Emergency (ER) | payer OTHER ==
[~2023-10-15] VITALS: Ht 175.3 cm; Wt 83.9 kg
[2023-10-15 01:46] VITALS: BP 168/106; PULSE 94; RESP 20; TEMP 98.2; O2SAT 98
[2023-10-15 01:53] VITALS: O2SAT 98
[2023-10-15 03:03] LABS: BASOPHILS # (AUTO) 0.1 K/uL (0.00-0.22); BASOPHILS % (AUTO) 0.5 % (0.0-2.0); EOSINOPHILS # (AUTO) 0.4 K/uL (0-0.4); EOSINOPHILS % (AUTO) 3.2 % (0.0-4.0); HEMOGLOBIN 12.7 g/dL (12.0-18.0); LYMPHOCYTES # (AUTO) 1.8 K/uL (2.0-11.5); LYMPHOCYTES % (AUTO) 16.2 % (20.5-51.1); MEAN CORPUSCULAR HEMOGLOBIN 31 pg (27-31); MEAN CORPUSCULAR HGB CONC 34 g/dL (33-37); MONOCYTES # (AUTO) 0.8 K/uL (0.8-1.0); MONOCYTES % (AUTO) 7.6 % (1.7-9.3); NEUTROPHILS # (AUTO) 8.1 K/uL (1.8-7.7); NEUTROPHILS % (AUTO) 72.5 % (42.2-75.2); PLATELET COUNT (AUTO) 203 K/uL (140-450); RED BLOOD CELL COUNT(AUTO) 4.06 MIL/uL (4.20-6.10); RED CELL DISTRIBUTION WIDTH 13.9 % (11.6-13.7); WHITE BLOOD COUNT (AUTO) 11.1 K/uL (4.8-10.8)
[2023-10-15 03:08] LABS: ANION GAP 12.8 (8-16); CALCIUM 9.4 mg/dL (8.5-10.1); POTASSIUM 3.8 mmol/L (3.5-5.1)
[2023-10-15 03:14] LABS: ALBUMIN 3.4 g/dL (3.4-5.0); BILIRUBIN,DIRECT 0.1 mg/dL (0.0-0.3); TOTAL BILIRUBIN 0.3 mg/dL (0.0-1.0); TOTAL PROTEIN, SERUM 6.7 g/dL (6.4-8.2)
[2023-10-15] MEDS ORDERED: KETOROLAC 30 MG/ML VIAL IM ONE (03:35)
[2023-10-15] MEDS: KETOROLAC 30 MG/ML VIAL IVP ONE (03:50)
[2023-10-15] MEDS: ALUMINUM HYD/MAG/SIMETHICONE 30 ML UDC PO ONE (04:16)
[2023-10-15] MEDS: MORPHINE SULFATE 4 MG/ML SYR IVP ONE (04:47)
[2023-10-15] MEDS: DICYCLOMINE 20 MG/2 ML VIAL IM ONE (07:43)
== END 2023-10-15 07:49 | disposition home or self-care (01) ==
LOC: MED 01:40
DX: R10.12 Left upper quadrant pain (principal); R11.0 Nausea; E11.9 Type 2 diabetes mellitus without complications; I10 Essential (primary) hypertension; Z86.73 Personal history of transient ischemic attack (TIA), and cerebral infarction without residual deficits; Z79.899 Other long term (current) drug therapy; Z79.4 Long term (current) use of insulin; Z79.01 Long term (current) use of anticoagulants; Z79.82 Long term (current) use of aspirin; Z88.8 Allergy status to other drugs, medicaments and biological substances
CPT/HCPCS: 36415; 74176; 80048; 80076; 83690; 84484; 85025; 93005; 96374; 96375; 99285; J0500; J1885; J2270

== ENCOUNTER 2023-12-02 19:00 | Emergency (ER) | payer OTHER ==
[~2023-12-02] VITALS: Ht 180.3 cm; Wt 85.7 kg
[~2023-12-02 19:00] MED LIST changes: -ACET-10509 PO; +ACET500T99 PO
[2023-12-02 19:06] VITALS: BP 148/90; PULSE 83; RESP 16; TEMP 98.4; O2SAT 99
[2023-12-02] MEDS ORDERED: ALUMINUM HYD/MAG/SIMETHICONE 30 ML UDC ONE (19:26)
[2023-12-02] MEDS ORDERED: DICYCLOMINE HCL LIQUID 10 MG/5 ML UDC ONE (19:26)
[2023-12-02] MEDS: DICYCLOMINE HCL LIQUID 20 MG, ALUMINUM HYD/MAG/SIMETHICONE 30 ML, LIDOCAINE VISCOUS 2% ... PO ONE (19:32)
== END 2023-12-02 20:05 | disposition home or self-care (01) ==
LOC: MED 19:00
DX: R11.2 Nausea with vomiting, unspecified (principal); R19.7 Diarrhea, unspecified; R10.84 Generalized abdominal pain; T36.0X5A Adverse effect of penicillins, initial encounter; E11.9 Type 2 diabetes mellitus without complications; I10 Essential (primary) hypertension; Z86.73 Personal history of transient ischemic attack (TIA), and cerebral infarction without residual deficits; Z95.5 Presence of coronary angioplasty implant and graft; Z79.899 Other long term (current) drug therapy; Z79.4 Long term (current) use of insulin; Z79.01 Long term (current) use of anticoagulants; Z79.82 Long term (current) use of aspirin; Z88.8 Allergy status to other drugs, medicaments and biological substances; Z88.6 Allergy status to analgesic agent; Y92.89 Other specified places as the place of occurrence of the external cause
CPT/HCPCS: 99283